=== PATIENT | male | born 1955 | race Caucasian/White ===

== ENCOUNTER → 2025-02-08 | Day surgery (SDC) | payer MEDICARE, MEDICAID ==
[~2025-02-08] VITALS: Ht 165.1 cm; Wt 87.3 kg
[2025-02-08] VITALS (15 sets, daily range): BP systolic 142–152; BP diastolic 69–80; PULSE 61–77
[~2025-02-08] MED LIST: AMLO10TA55 PO; ASPI-1450 PO; ASPIRIN 325 MG TABLET ONE; ATOR40TA71 PO; CARV12.530 PO; CLOP75TA83 PO; CLOPIDOGREL BISULFATE 300 MG TABLET ONE; FLUT1BLS18 IH; FentaNYL CITRATE PF 100 MCG/2 ML VIAL ONE; HEPARIN SODIUM 1000 UNITS/NS 1,000 ML ONE; IOHEXOL 300 MG/ML 100 ML VIAL ONE; LIDOCAINE/PF 1% 30 ML VIAL ONE; MIDAZOLAM HCL 2 MG/2 ML VIAL ONE; NITROGLYCERIN 50 MG/D5% WATER 250 ML ONE; OLME40TA18 PO; SODIUM BICARBONATE 50 MEQ/50 ML VIAL ONE; SODIUM CHLORIDE 0.9% 1,000 ML ONE; VERAPAMIL HCL 2.5 MG/ML 2 ML VIAL ONE
[2025-02-08 07:17] LABS: CALCIUM, TOTAL 8.9 mg/dL (8.8-10.5); CREATININE 0.72 mg/dL (0.60-1.30); GLOMERULAR FILTR. RATE CALC > 60 mL/min (>60); GLUCOSE,RANDOM 118 mg/dL (70-110); SODIUM SERUM 131 mmol/L (136-145); UREA NITROGEN, BLOOD 5 mg/dL (7-18)
[2025-02-08 07:19] LABS: PLATELET COUNT (AUTO) 341 K/uL (150-450); RED BLOOD CELL COUNT(AUTO) 4.56 MIL/uL (4.50-5.90); RED CELL DISTRIBUTION WIDTH 14.1 % (11.5-14.5); WHITE BLOOD COUNT (AUTO) 7.7 K/uL (4.5-11.0)
[2025-02-08] MEDS: SODIUM CHLORIDE 0.9% 1,000 ML IV ONE ×2 (07:30→13:10)
[2025-02-08] MEDS: HEPARIN SODIUM 1000 UNITS/NS 1,000 ML IARTER ONE (08:39)
[2025-02-08] MEDS: VERAPAMIL HCL 2.5 MG/ML 2 ML VIAL IARTER ONE (08:39)
[2025-02-08] MEDS: HEPARIN SODIUM,PORCINE 1,000 UNITS/ML 10 ML VIAL IARTER ONE (08:39)
[2025-02-08] MEDS: LIDOCAINE 1% 30 ML/SOD BICARB 8.4% 4 ML SQ ONE (08:39)
[2025-02-08] MEDS: FentaNYL CITRATE PF 100 MCG/2 ML VIAL IVP ONE (08:40)
[2025-02-08] MEDS: MIDAZOLAM HCL 2 MG/2 ML VIAL IVP ONE (08:40)
[2025-02-08] MEDS: NITROGLYCERIN/D5W 50 MG/250 ML IV BOTTLE IARTER ONE (08:41)
[2025-02-08] MEDS: IOHEXOL 300 MG/ML 100 ML VIAL ICOR ONE (08:45)
[2025-02-08 08:51] LABS: BAND NEUTROPHILS % (MANUAL) 0 % (0-5)
[2025-02-08 08:52] LABS: BASOPHILS % (MANUAL) 1 % (0-2); EOSINOPHILS % (MANUAL) 11 % (1-6); LYMPHOCYTES % (MANUAL) 26 % (22-44); MONOCYTES % (MANUAL) 8 % (2-9); SEGMENTED NEUTROPHILS % 54 % (40-70)
[2025-02-08] MEDS: IOHEXOL 300 MG/ML 100 ML VIAL IARTER ONE (08:56)
[2025-02-08] MEDS: HEPARIN SODIUM,PORCINE 1,000 UNITS/ML 10 ML VIAL IVP ONE (08:56)
[2025-02-08] MEDS: CLOPIDOGREL BISULFATE 300 MG TABLET PO ONE (09:11)
[2025-02-08] MEDS: ASPIRIN 325 MG TABLET PO ONE (09:11)
== END | disposition still patient (30) ==
LOC: CATHLAB 06:06
PROVIDERS: ATTEND Internal Medicine
DX: R94.39 Abnormal result of other cardiovascular function study (principal); I25.119 Atherosclerotic heart disease of native coronary artery with unspecified angina pectoris; E78.00 Pure hypercholesterolemia, unspecified; F41.9 Anxiety disorder, unspecified; Z79.01 Long term (current) use of anticoagulants; I10 Essential (primary) hypertension; E78.5 Hyperlipidemia, unspecified; Z82.49 Family history of ischemic heart disease and other diseases of the circulatory system; Z98.890 Other specified postprocedural states; Z72.89 Other problems related to lifestyle; Z91.013 Allergy to seafood
CPT/HCPCS: 93454; 93005; 80048; 85025; 85610; 85730; 36415; 99152; 99153; C9600; C1887; J3010; J1644; J3490 ×4; J2250; J7030; Q9967; C1874; 92920; 92928; Z7610